=== PATIENT | male | born 1985 | race African-American/Black ===

== ENCOUNTER 2024-02-15 19:53 | Emergency (ER) | payer OTHER ==
[~2024-02-15] VITALS: Ht 188 cm; Wt 91.5 kg
[2024-02-15 21:08] LABS: BASO % 0.3 % (0.0-1.0); EOS # 0.1 10^3/uL (0.0-0.5); EOS % 1.7 % (0.0-3.0); HEMATOCRIT 43.1 % (42.0-52.0); LYMPH # 3.8 10^3/uL (1.5-5.0); LYMPH % 50.5 % (24.0-44.0); MEAN CORPUSCULAR HEMOGLOBIN 28.3 pg (27.0-33.0); MEAN CORPUSCULAR HGB CONC 32.5 g/dl (32.0-36.5); MEAN CORPUSCULAR VOLUME 87.1 fl (80.0-96.0); MONO # 0.6 10^3/uL (0.0-0.8); MONO % 7.7 % (2.0-8.0); NEUTROPHILS % 39.5 % (36.0-66.0); PLATELET COUNT, AUTOMATED 242 10^3/uL (150-450); RED BLOOD COUNT 4.95 10^6/uL (4.30-6.10); WHITE BLOOD COUNT 7.5 10^3/uL (4.0-10.0)
[2024-02-15 21:35] LABS: LIPASE 34 U/L (12-53)
[2024-02-15 21:37] LABS: ALBUMIN 3.9 G/DL (3.2-5.2); ALKALINE PHOSPHATASE 71 U/L (46-116); ALT/SGPT 57 U/L (7.0-40); AST/SGOT 29 U/L (<34); BILIRUBIN,DIRECT 0.1 MG/DL (<0.4); BILIRUBIN,TOTAL 0.4 MG/DL (0.3-1.2); BLOOD UREA NITROGEN 14 MG/DL (9-23); CALCIUM LEVEL 9.3 MG/DL (8.5-10.1); CARBON DIOXIDE LEVEL 29 MMOL/L (20-31); CHLORIDE LEVEL 105 MMOL/L (98-107); CREATININE FOR GFR 1.24 MG/DL (0.70-1.30); GLOMERULAR FILTRATION RATE > 60.0 (>60); GLUCOSE, FASTING 104 MG/DL (60-100); POTASSIUM SERUM 4.2 MMOL/L (3.5-5.1); SODIUM LEVEL 139 MMOL/L (136-145); TOTAL PROTEIN 7.6 G/DL (5.7-8.2)
[2024-02-16] MEDS ORDERED: ISOVUE-370 76% 100ML VIAL As Ordered ONE (02:15)
[2024-02-16] MEDS: KETOROLAC 30 MG/ML 1ML VIAL IV ONE (02:50)
[2024-02-16 04:45] VITALS: BP 114/67; TEMP 97.5; O2SAT 100
[2024-02-16] MEDS: MAGNESIUM CITRATE 300ML BTL PO ONE (04:45)
== END 2024-02-16 05:07 | disposition home or self-care (01) ==
LOC: M ED 19:53
DX: K59.00 Constipation, unspecified (principal); F10.10 Alcohol abuse, uncomplicated
CPT/HCPCS: 71275; 74177; 80048; 80076; 81001; 83690; 85025; 96374; 99284; J1885; Q9967